=== PATIENT | female | born 1975 | race Caucasian/White ===

== ENCOUNTER 2017-04-19 22:04 | Inpatient (IN) | payer OTHER ==
[~2017-04-19] VITALS: Ht 160.7 cm; Wt 99.8 kg
[~2017-04-19 22:04] MED LIST: ADVAIR 500/501 DISK IH; BUSPAR15 MG PO; CLARITIN10 M3 PO; CLINDAMYCIN HC300 MG PO; CLONAZEPAM1 MG; DESYREL100 MG PO; EFFEXOR XR75 MG PO; FLONASE ALLERG9.9 ML BOTH NARES; KLONOPIN1 MG PO; LAMICTAL100 MG PO; MEDROL DOSEPAK4 MG PO; MULTIPLE VITAM1 EAC4 PO; NORCO 5/3251 TABLET PO; PAXIL20 M1; PAXIL20 MG PO; PROAIR HFA8.5 GM IH; PROVENTIL,2.5 MG/3 M IH; PROVIGIL200 MG PO; SUBOXONE 12 MG1 EACH SL; SUBOXONE 8 MG-1 EAC2 SL; SUBTEX PO; SUBUTEX PO; SUPER B COMP1 TABLET PO; SYNTHROID25 MCG PO; XANAX2 MG; ZITHROMAX Z-PA250 MG PO; ZYPREXA10 MG PO; ZYPREXA5 MG PO
[2017-04-20 07:33] VITALS: BP 115/60
[2017-04-20 12:10] VITALS: BP 106/54
[2017-04-20 15:32] VITALS: BP 106/55
[2017-04-20 20:11] VITALS: BP 109/53
[2017-04-21 01:08] VITALS: BP 120/58
[2017-04-21 04:05] VITALS: BP 120/61
[2017-04-21 05:03] LABS: CHLORIDE 106 mEq/L (99-109); POTASSIUM 4.3 mEq/L (3.7-5.4); SODIUM 138 mEq/L (136-147)
[2017-04-21 05:05] LABS: GLUCOSE 146 mg/dL (70-99)
[2017-04-21 05:09] LABS: CREATININE 0.7 mg/dL (0.6-1.3); GFR ESTIMATE (CALCULATED) > 59 mL/min/
[2017-04-21 05:10] LABS: UREA NITROGEN (BUN) 13 mg/dL (9-23)
[2017-04-21 07:42] VITALS: BP 136/69
[2017-04-21 12:12] VITALS: BP 137/70
[2017-04-21 15:53] VITALS: BP 136/81
[2017-04-21 20:12] VITALS: BP 161/72
[2017-04-22 00:30] VITALS: BP 135/73
[2017-04-22 04:12] VITALS: BP 132/86
[2017-04-22 08:00] VITALS: BP 145/76
[2017-04-22] MEDS ORDERED: METHOCARBAMOL750 MG PO (12:40)
[2017-04-22] MEDS ORDERED: ELIQUIS2.5 MG PO (12:41)
[2017-04-22] MEDS ORDERED: OXYCODONE HCL5 MG PO (12:41)
[2017-04-22] MEDS ORDERED: OXYCONTIN10 MG PO (12:41)
[2017-04-22] MEDS ORDERED: SENNA PLUS TAB1 EACH PO (12:42)
== END 2017-04-22 14:37 | DRG 470 ==
LOC: ENRESERV 22:04 → 2SOUTH 04-20 06:38 → 3WEST 04-20 06:38 → 2SOUTH 04-20 09:19 → 3WEST 04-20 11:54 → ENRESERV 04-22 07:14 → CANRESERV 04-22 12:56 → ENRESERV 04-22 12:56 → 3WEST 04-22 14:37
PROVIDERS: Orthopaedic Surgery
PROC: 0SRC0J9 Replacement of Right Knee Joint with Synthetic Substitute, Cemented, Open Approach (ICD-10-PCS; principal; 2017-04-20)
DX: M17.11 Unilateral primary osteoarthritis, right knee (principal); M21.161 Varus deformity, not elsewhere classified, right knee; M22.41 Chondromalacia patellae, right knee; F11.20 Opioid dependence, uncomplicated; E03.9 Hypothyroidism, unspecified; G89.29 Other chronic pain; J45.909 Unspecified asthma, uncomplicated; F32.9 Major depressive disorder, single episode, unspecified; F17.210 Nicotine dependence, cigarettes, uncomplicated; Z91.5 Personal history of self-harm; E66.3 Overweight; Z68.38 Body mass index [BMI] 38.0-38.9, adult
CPT/HCPCS: 71045; 80048; 82948; 94640; 94640 76; 99202; C1713; J0131; J0571; J0690; J1885; J2250; J2795; J3010; J7050; J7120; L1820; S0020